=== PATIENT | male | born 1965 | race Two or more races ===

== ENCOUNTER 2022-12-31 16:47 | Emergency (ER) | payer SELFPAY ==
[~2022-12-31] VITALS: Ht 165.1 cm; Wt 68.2 kg
[2022-12-31] MEDS ORDERED: METF-1211 PO (16:51)
[2022-12-31 16:54] VITALS: BP 176/114
[2022-12-31 17:38] LABS: EOSINOPHILS % (AUTO) 4.4 % (1.0-6.0); HEMATOCRIT 41.2 % (41-53); HEMOGLOBIN 14.2 g/dL (13.5-17.5); LYMPHOCYTES # (AUTO) 1.2 K/uL (1.0-4.8); LYMPHOCYTES % (AUTO) 18.9 % (22.0-44.0); MEAN CORPUSCULAR HEMOGLOBIN 32.3 pg (26.0-34.0); MEAN CORPUSCULAR HGB CONC 34.6 G/dL (31.0-37.0); MEAN CORPUSCULAR VOLUME 94 fL (80-100); MONOCYTES # (AUTO) 0.4 K/uL (0.1-1.0); MONOCYTES % (AUTO) 7.1 % (2.0-9.0); NEUTROPHILS # (AUTO) 4.2 K/uL (1.8-7.7); NEUTROPHILS % (AUTO) 68.6 % (40.0-70.0); PLATELET COUNT (AUTO) 237 K/uL (150-450); RED CELL DISTRIBUTION WIDTH 12.9 % (11.5-14.5)
[2022-12-31 17:57] LABS: B-TYPE NATRIURETIC PEPTIDE 8 pg/mL (0-100)
[2022-12-31 18:13] LABS: LACTIC ACID 1.4 mmol/L (0.4-2.0)
[2022-12-31 18:31] LABS: ALANINE AMINOTRANSFERASE 19 U/L (12-78); ALKALINE PHOSPHATASE 107 U/L (46-116); ANION GAP 12 mmol/L (8-16); ASPARTATE AMINOTRANSFERASE 13 U/L (15-37); BILIRUBIN,TOTAL 0.3 mg/dL (0.1-1.0); CALCIUM, TOTAL 9.2 mg/dL (8.8-10.5); CARBON DIOXIDE 24 mmol/L (22-29); CHLORIDE 96 mmol/L (98-107); CREATININE 0.89 mg/dL (0.60-1.30); GLOMERULAR FILTR. RATE CALC > 60 mL/min (>60); POTASSIUM 3.8 mmol/L (3.5-5.1); SODIUM SERUM 132 mmol/L (136-145); TOTAL PROTEIN, SERUM 7.3 g/dL (6.4-8.2)
[2022-12-31 18:32] LABS: ALBUMIN 3.6 g/dL (3.4-5.0); LIPASE 405 U/L (73-393)
[2022-12-31 18:33] LABS: GLUCOSE,RANDOM 509 mg/dL (70-110)
== END 2022-12-31 18:50 | disposition left against medical advice (07) ==
LOC: EMS 16:49
DX: R06.02 Shortness of breath (principal); F41.9 Anxiety disorder, unspecified; R09.81 Nasal congestion; Z53.21 Procedure and treatment not carried out due to patient leaving prior to being seen by health care provider
CPT/HCPCS: 71045; 80053; 83605; 83690; 83880; 84484; 85025; 93005; 99281